=== PATIENT | female | born 1960 ===

== ENCOUNTER 2023-12-02 11:00 | Inpatient (IN) | payer OTHER ==
[~2023-12-02] VITALS: Ht 162.6 cm; Wt 73.9 kg
[2023-12-02] MEDS ORDERED: HORIZANT300 MG PO (13:04)
[2023-12-02] MEDS ORDERED: CYMBALTA30 MG PO (13:07)
[2023-12-02 13:08] VITALS: BP 149/82
[2023-12-09] MEDS ORDERED: GABAPENTIN300 M2 (13:26)
[2023-12-09] MEDS ORDERED: DULOXETINE HCL60 MG (13:26)
[2023-12-09] MEDS ORDERED: BUPIVACAINE HCL 30 ML VIAL IJ ONE (15:00)
[2023-12-09] MEDS ORDERED: METRONIDAZOLE/SODIUM CHLORIDE 500 MG/100 ML PIGGYBACK IV ONE (15:00)
[2023-12-09] MEDS ORDERED: LIDOCAINE HCL 1%/EPINEPHRINE 20ML VIAL IJ ONE (15:00)
[2023-12-09] MEDS ORDERED: CEFTRIAXONE SODIUM 2,000 MG VIAL IV ONE (15:00)
[2023-12-09] MEDS ORDERED: OxyCODONE HCL 5 MG TABLET (ROXICODONE) PO PRN (18:15)
[2023-12-09] MEDS ORDERED: MORPHINE SULFATE 4 MG/ML CARTRIDGE IV PRN (18:15)
[2023-12-09] MEDS ORDERED: RINGERS SOLUTION,LACTATED 1,000 ML IV SCH (18:15)
[2023-12-09] MEDS ORDERED: DEXTROSE 50 % IN WATER 0.5 G/ML DISP.SYRIN IV PRN (18:15)
[2023-12-09] MEDS ORDERED: ONDANSETRON HCL 2 MG/ML VIAL IV PRN (18:15)
[2023-12-09] MEDS ORDERED: MORPHINE SULFATE 2 MG/ML CARTRIDGE IV ONE (19:15)
[2023-12-09] MEDS ORDERED: MORPHINE SULFATE 4 MG/ML VIAL IV ONE ×2 (19:45→21:00)
[2023-12-09] MEDS ORDERED: ACETAMINOPHEN 500 MG GEL..CAP PO SCH (20:00)
[2023-12-09 20:24] LABS: HEMATOCRIT 38.5 % (36.0-45.00); HEMOGLOBIN 12.9 g/dL (12.0-15.00); MEAN CORPUSCULAR HEMOGLOBIN 28.6 pg (27.00-32.0); MEAN CORPUSCULAR HGB CONC 33.6 g/dl (32.0-36.0); PLATELET COUNT 283 K/uL (150-450); RED BLOOD COUNT 4.53 M/uL (4.00-6.00)
[2023-12-09] MEDS ORDERED: SIMETHICONE 125 MG CAPSULE PO SCH (21:00)
[2023-12-09] MEDS ORDERED: FAMOTIDINE/PF 20 MG/2 ML VIAL IV PUSH SCH (21:00)
[2023-12-09] MEDS ORDERED: ENALAPRILAT DIHYDRATE 1.25 MG/ML VIAL IV ONE ×2 (21:15→21:45)
[2023-12-10 00:53] VITALS: BP 149/82; O2SAT 98
[2023-12-10] MEDS ORDERED: GABAPENTIN 300 MG CAPSULE PO SCH (01:00)
[2023-12-10] MEDS ORDERED: METOCLOPRAMIDE HCL 5 MG/ML VIAL IV SCH (01:00)
[2023-12-10] MEDS ORDERED: CELECOXIB 200 MG CAPSULE PO SCH (05:00)
[2023-12-10 08:01] LABS: ALBUMIN 3.4 gm/dL (3.4-5.0); CALCIUM 9.2 mg/dL (8.5-10.1); CREATININE SERUM 0.62 mg/dL (0.55-1.02); GFR 96.6; MAGNESIUM 1.6 mg/dL (1.8-2.4); PHOSPHOROUS 3.5 mg/dL (2.5-4.9); POTASSIUM 4.7 mEq/L (3.5-5.1)
[2023-12-10] MEDS ORDERED: LACTOBACILLUS ACIDOPHILUS 1 CAP CAP PO SCH (09:00)
[2023-12-10] MEDS ORDERED: Duloxetine HCl 60 MG CAPSULE.DR PO SCH (09:00)
[2023-12-10] MEDS ORDERED: HYOSCYAMINE SULFATE 0.125 MG TAB.SUBL SL SCH (09:00)
[2023-12-10] MEDS ORDERED: LACTULOSE 20 G/30 ML BLIST.PACK PO SCH (09:00)
[2023-12-10 12:06] VITALS: BP 131/73; O2SAT 97
[2023-12-10 16:23] VITALS: BP 116/62; O2SAT 98
[2023-12-10] MEDS ORDERED: POLYETHYLENE GLYCOL 3350 17 GM BLIST.PACK PO SCH (17:00)
[2023-12-10] MEDS ORDERED: ENOXAPARIN SODIUM 40 MG/0.4 ML SYRINGE SUBCUTANEO SCH (17:00)
[2023-12-10 23:45] VITALS: BP 127/70; O2SAT 100
[2023-12-11 06:54] LABS: HEMOGLOBIN 11.2 g/dL (12.0-15.00); MEAN CELL VOLUME 85.3 fL (80.00-100.00); PLATELET COUNT 237 K/uL (150-450); RED BLOOD COUNT 3.87 M/uL (4.00-6.00); RED CELL DISTRIBUTION WIDTH 14.9 % (11.5-14.5)
[2023-12-11 07:11] LABS: CALCIUM 8.7 mg/dL (8.5-10.1); CREATININE SERUM 0.55 mg/dL (0.55-1.02); GFR 110.93; MAGNESIUM 1.5 mg/dL (1.8-2.4); POTASSIUM 3.56 mEq/L (3.5-5.1)
[2023-12-11 08:06] VITALS: BP 127/69; O2SAT 95
[2023-12-11] MEDS ORDERED: ENOXAPARIN SODIUM 40 MG/0.4 ML SYRINGE SUBCUTANEO SCH (09:00)
[2023-12-11] MEDS ORDERED: MAGNESIUM SULFATE IN WATER 50 ML IV NR (10:30)
[2023-12-11] MEDS ORDERED: POTASSIUM PHOS,M-BASIC-D-BASIC 3 MM/ML VIAL IV ONE (12:00)
[2023-12-11 16:00] VITALS: BP 152/72; O2SAT 96
[2023-12-12 01:20] VITALS: BP 167/74; O2SAT 94
[2023-12-12 08:00] VITALS: BP 149/71; O2SAT 96
== END 2023-12-12 13:49 | disposition home or self-care (01) | DRG 330 ==
LOC: SURH 12-09 07:00 → O/R 12-09 08:00 → SURH 12-09 11:00
PROVIDERS: Internal Medicine Geriatric Medicine; ADMIT Colon & Rectal Surgery; ATTEND Colon & Rectal Surgery
PROC: 0DBP4ZZ Excision of Rectum, Percutaneous Endoscopic Approach (ICD-10-PCS; 2023-12-09)
PROC: 0DJD8ZZ Inspection of Lower Intestinal Tract, Via Natural or Artificial Opening Endoscopic (ICD-10-PCS; 2023-12-09)
PROC: 0DTN4ZZ Resection of Sigmoid Colon, Percutaneous Endoscopic Approach (ICD-10-PCS; principal; 2023-12-09 07:00)
DX: K57.20 Diverticulitis of large intestine with perforation and abscess without bleeding (principal); K92.1 Melena; N73.6 Female pelvic peritoneal adhesions (postinfective); N99.4 Postprocedural pelvic peritoneal adhesions